=== PATIENT | female | born 1980 | race Hispanic/Latino ===

== ENCOUNTER 2017-07-28 20:22 | Emergency (ER) | payer OTHER ==
[~2017-07-28] VITALS: Ht 167.6 cm; Wt 92.5 kg
[~2017-07-28 20:22] MED LIST: Z IRON PO
[2017-07-28] MEDS ORDERED: CLINDAMYCIN PHOS 600 MG/ 4 ML VIAL IM ONE (22:00)
[2017-07-28] MEDS ORDERED: CLINDAMYCIN PHOS 300MG/2ML VIAL ONE (22:05)
[2017-07-28 23:36] VITALS: BP 136/79
== END 2017-07-28 23:43 | disposition home or self-care (01) ==
LOC: ER 20:22
DX: L03.311 Cellulitis of abdominal wall (principal)
CPT/HCPCS: 99282